=== PATIENT | male | born 1945 | race Caucasian/White ===

== ENCOUNTER 2018-06-12 08:35 | Day surgery (SDC) | payer MEDICARE ==
[~2018-06-12 08:35] MED LIST: ACETAMINOPHEN 1,000 MG/100 ML BTL IV ONE; CEFAZOLIN 2 Gram 2 GM/50 ML BAG IVPB ONE
[2018-06-12] MEDS ORDERED: ONDANSETRON HCL IV 4 MG/2 ML VIAL IVP ONE (08:36)
[2018-06-12] MEDS ORDERED: FENTANYL PF 100MCG/2ML VIAL IV ONE (08:36)
[2018-06-12] MEDS ORDERED: MIDAZOLAM HCL 2MG/2ML VIAL IV ONE (08:36)
[2018-06-12] MEDS ORDERED: LIDOCAINE 2% MDV (20MG/ML) 20ML VIAL IV ONE (08:36)
[2018-06-12] MEDS ORDERED: SEVOFLURANE 250 ML INH ONE (08:36)
[2018-06-12] MEDS ORDERED: BUPIVACAINE 0.5% W/EPI MPF 30 ML VIAL IVP ONE (08:36)
[2018-06-12] MEDS ORDERED: METHYLPREDNISOLONE 40MG/VIAL IM ONE (08:36)
[2018-06-12] MEDS ORDERED: PROPOFOL 10 MG/ML VIAL IV ONE (08:36)
[2018-06-12] MEDS ORDERED: KETOROLAC 30 MG/ML VIAL IVP ONE (08:36)
[2018-06-12] MEDS ORDERED: DEXAMETHASONE 4 MG/ML 1ML VIAL IVP ONE (08:36)
--- NOTE | 2018-06-13 19:10 | Operative Note ---
DATE OF SURGERY: 05/13/2018 PREOPERATIVE DIAGNOSES: RIGHT KNEE MEDIAL MENISCAL TEAR AND ARTHROSIS. POSTOPERATIVE DIAGNOSES: RIGHT KNEE MEDIAL MENISCAL TEAR AND ARTHROSIS. PROCEDURE: 1. DIAGNOSTIC ARTHROSCOPY. 2. ARTHROSCOPIC PARTIAL POSTERIOR HORN MEDIAL MENISCECTOMY. 3. ARTHROSCOPIC DEBRIDEMENT AND CHONDROPLASTY OF THE FEMORAL TROCHLEA. 4. ARTHROSCOPIC DEBRIDEMENT AND CHONDROPLASTY OF THE MEDIAL FEMORAL CONDYLE. SURGEON: PABLO LANZA M.D. ANESTHESIA: GENERAL ENDOTRACHEAL. COMPLICATIONS: NONE. BLOOD LOSS: MINIMAL. 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 Complex tear of the entire posterior horn of the medial meniscus. INDICATIONS FOR OPERATION: This is a 72-year-old male who has had persistent pain and dysfunction in his knee for several years. He had mechanical symptoms of catching and locking in the medial joint and is now scheduled for the arthroscopic procedure above. I explained all the risks and benefits to him in detail for his diagnosis and procedures including but not limited to infection, nerve injury, vessel injury, persistent pain, stiffness, numbness and tingling in his knee, blood clot, the fact that he has arthrosis of the knee and that this procedure would not cure this condition and he could require further procedures, and all of his questions were answered. Rehab and course were outlined and he agreed to proceed. PROCEDURE: The patient brought to O.R. and placed in the supine position and prepped for surgery. His right lower extremity and knee were prepped and draped in the usual sterile fashion. The right knee was prepped again with ChloraPrep after it was draped. Intraoperative time-out was performed. Next, knee injected with 0.5% Marcaine with Epinephrine. Preoperatively, the exam revealed knee full range of motion, no knee instability. Standard superior lateral inflow port was established. Inferior medial and lateral ports were established and diagnostic arthroscopy performed. The suprapatellar pouch was normal. The medial gutter was normal. The medial compartment revealed complex tear entire posterior horn of the medial meniscus with large sheered flaps superiorly. We debrided that using basket biter and shaver back to a smooth, stable surface as possible. Next, performed chondroplasty medial femoral condyle. He had a grade 3-4 chondromalacia diffusely throughout the medial femoral condyle. We removed any loose coarse cartilage fragments and tried to smooth it as much as possible. The patellofemoral compartment revealed a grade 3-4 chondromalacia of the femoral trochlea. We had again significant debridement of this area chondroplasty trying to smooth the cartilage as best as possible, the surface of the patella had a grade 1-2. The lateral compartment was normal. Cartilage on the tibia was probed and it was normal. Meniscus was normal. ACL was normal also the intercondylar notch. The lateral gutter was normal. This completed our procedures. The scope and equipment were removed. The wound was covered with Xeroform gauze. The knee was injected with 0.5% Marcaine with Epinephrine, Exparel, and 40 mg of DepoMedrol. Sterile dressing applied. DILCIA wrap. The patient tolerated the procedures well. No intraoperative complications. All sponge, needle, and blade counts correct. Recovery Room stable, neurovascularly intact. He will be discharged as an outpatient and have home nurse from [facility] follow-up in two weeks. cc: Henry Sky M.D. JOB NUMBER: [id number] MTDD
== END 2018-06-12 12:55 | disposition home or self-care (01) ==
LOC: SUR 08:35
PROVIDERS: ATTEND Orthopaedic Surgery
DX: S83.231A Complex tear of medial meniscus, current injury, right knee, initial encounter (principal); M17.11 Unilateral primary osteoarthritis, right knee; I10 Essential (primary) hypertension; E78.00 Pure hypercholesterolemia, unspecified
CPT/HCPCS: 29881; 29870; 01400; J1885; J2405; J3010; J0690; J1030